=== PATIENT | female | born 1955 | race Caucasian/White ===

== ENCOUNTER 2018-11-10 07:06 | Day surgery (SDC) | payer BC ==
[2018-11-10] MEDS ORDERED: fentaNYL 100 MCG/2 ML SDV ONE (07:32)
[2018-11-10] MEDS ORDERED: Midazolam 1 MG/ML 2 ML SDV ONE (07:32)
[2018-11-10] MEDS ORDERED: Propofol 200 MG/20 ML SDV ONE (07:32)
[2018-11-10] MEDS ORDERED: Dextrose 5%-Lactated Ringers 1,000 ML IV SCH (07:45)
[2018-11-10 11:17] VITALS: BP 113/77
--- NOTE | 2018-11-16 13:54 | OR ---
DATE OF PROCEDURE: 11/10/2018 PREOPERATIVE DIAGNOSIS: History of colon polyps. POSTOPERATIVE DIAGNOSIS: Recurrent colon polyps x3. OPERATIVE PROCEDURE: Flexible colonoscopy with polypectomy by snare technique x3. ANESTHESIA: IV sedation. INDICATIONS FOR PROCEDURE: This is a 63-year-old, presenting for followup colonoscopy. She has history of colon polyps in the past. Plan is to proceed with a flexible colonoscopy with polypectomy as indicated. Potential risks including bleeding and perforation were discussed, and the patient wishes to proceed. DETAILS OF PROCEDURE: The patient was taken to the operating room and placed in a left lateral decubitus position. IV sedation was administered, after which the initial digital rectal exam was performed and was unremarkable. Colonoscope was then passed into the rectum with retroflexion revealing uncomplicated hemorrhoidal columns. The scope was eventually passed to the level of the cecum. Prep was fairly good with there being some liquid stool, which might have obscured small areas of mucosal surface. To that level, there were no areas of colitis and no areas of diverticular disease. There was a total of 3 polyps, all of which measured less than 3 mm, one was in the mid transverse colon and then two were more or less adjacent to each other at 15 to 20 cm from the dentate line. All three of these were sequentially encircled with the snare and cauterized at the base and sent for pathologic review. Good hemostasis was confirmed and the procedure then concluded. Recommendation would be to repeat the colonoscopy in 2 years, sooner if these are adenomatous polyps. Seng Malloy MD /[id number]
== END 2018-11-10 11:31 | disposition home or self-care (01) ==
LOC: JP.SDS 07:06
PROVIDERS: ATTEND Surgery
DX: Z12.11 Encounter for screening for malignant neoplasm of colon (principal); K63.5 Polyp of colon; F17.200 Nicotine dependence, unspecified, uncomplicated; Z86.010 Personal history of colon polyps; Z79.890 Hormone replacement therapy
CPT/HCPCS: 45385; 88305; J2250; J2704; J3010; J7042

== ENCOUNTER → 2018-11-15 | Outpatient (CLI) | payer BC ==
--- NOTE | 2018-11-16 10:54 | CRLMY ---
INDICATION: Bilateral screening mammogram, asymptomatic female age 63 been obtained using full-field digital technique. These mammographic images were interpreted with the benefit of computer-aided detection. COMPARISON FILM: 08/25/17, 07/07/15. FINDINGS: There are scattered fibroglandular densities. There are no masses or calcifications that are suspicious for malignancy. IMPRESSION: There is no radiographic evidence for malignancy. ASSESSMENT: BI-RADS Category 2: Benign RECOMMENDATION: Routine screening mammogram in 1 year. A lay language report of this examination will be provided to the patient. Breast Tomosynthesis was used in this interpretation. [email or web address] Dictated by: Ross [email or web address].MD @ 11/16/2018 10:52:19 (Electronically Signed)
== END ==
LOC: JP.MAM 07:01
PROVIDERS: ATTEND Family Medicine
DX: Z12.31 Encounter for screening mammogram for malignant neoplasm of breast (principal)
CPT/HCPCS: 77063; 77067